=== PATIENT | female | born 1930 | race Caucasian/White ===

== ENCOUNTER → 2016-10-22 | Outpatient (CLI) | payer OTHER, MEDICARE ==
--- NOTE | 2016-10-22 10:26 | DX ---
Biphasic Esophagram CLINICAL HISTORY: 86-year-old female with dysphagia, and some "fullness" after swallowing. ICD 10 Diagnostic Code: R13.10. TECHNIQUE: Initially, thin barium was ingested by the patient while standing, and fluoroscopy was per formed. Subsequently, the patient ingested effervescent crystals and thick barium and imaging of the hypopharynx and of the cervical and thoracic esophagus was performed while standing. The patient also ingested a 13 mm tablet with water. The patient was then placed in a prone FUNES position, and thin ba rium was ingested. 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 Fluoroscopy Time: 1.8 minutes minutes (exposure dose of 12.1 mGy). COMPARISON STUDY: None. FINDINGS: There is normal oral pharyngeal propulsion of the bolus into the hypopharynx with a normal, symmetrical appearance to the vallecula and the piriform sinuses. The posterior cervical esophagus i s normal. There is no cricopharyngeus spasm, achalasia, or Zenker's diverticulum. There is no aspirat ion. There is antegrade esophageal motility with occasional interruption by tertiary contractions in the distal thoracic esophagus, resulting in transient delay into a moderate-sized hiatal hernia. Ther e is some mild fold thickening of the distal thoracic esophagus, suggestive of a mild esophagitis. It is challenging to exclude a Ryan's esophagus. There was some low-to-mid thoracic gastroesophageal reflux when the patient was supine. There is no esophageal ulceration, pulsion diverticulum, or stri cture. I provided a preliminary interpretation to the patient and her son-in-law at the time of exam perform ance. IMPRESSION: 1. Moderate-sized hiatal hernia with associated with mid-to-low level gastroesophageal reflux. 2. 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 3. Mild fold thickening associated with the distal thoracic esophagus, which may reflect an esophagit is, although it would be difficult to entirely exclude a Ryan's esophagus.
== END ==
LOC: FIMAGING 08:33
PROVIDERS: ATTEND Internal Medicine
DX: K44.9 Diaphragmatic hernia without obstruction or gangrene (principal); K22.8 Other specified diseases of esophagus

== ENCOUNTER → 2017-03-13 | Outpatient (CLI) | payer OTHER, MEDICARE ==
--- NOTE | 2017-03-13 16:04 | CPEKG ---
Heart Rate: 75 RR Interval: 800 P-R Interval: 164 QRSD Interval: 100 QT Interval: 420 QTC Interval: 470 P [place]: 77 QRS [place]: -50 T Wave [place]: 97 EKG Severity - ABNORMAL ECG - EKG Impression: SINUS RHYTHM EKG Impression: LAD, CONSIDER LEFT ANTERIOR FASCICULAR BLOCK EKG Impression: LVH WITH SECONDARY REPOLARIZATION ABNORMALITY EKG Impression: ANTERIOR Q WAVES, POSSIBLY DUE TO LVH EKG Impression: MINIMAL ST ELEVATION TO LEADS V1/V2 Electronically Signed By: Mac Melvin 13-Mar-2017 16:54:22
== END ==
LOC: FCP 15:45
PROVIDERS: ATTEND Internal Medicine
DX: R94.31 Abnormal electrocardiogram [ECG] [EKG] (principal); R06.02 Shortness of breath; R01.1 Cardiac murmur, unspecified; J45.909 Unspecified asthma, uncomplicated

== ENCOUNTER → 2017-03-27 | Outpatient (CLI) | payer OTHER, MEDICARE | LOC: BHFA 08:30 | PROVIDERS: ATTEND Internal Medicine Cardiovascular Disease | DX: R01.1 Cardiac murmur, unspecified (principal); R06.00 Dyspnea, unspecified ==